=== PATIENT | female | born 1975 | race Caucasian/White ===

== ENCOUNTER 2024-04-22 16:22 | Outpatient (CLI) | payer BC, SELFPAY ==
[2024-04-25 05:30] LABS: HPV Source Cervical; HPV, High Risk by TMA Not Detected
== END 2024-04-22 16:23 | disposition home or self-care (01) ==
PROVIDERS: PCP Registered Nurse; Visit Provider Registered Nurse
DX: Z12.4 Encounter for screening for malignant neoplasm of cervix (principal)
CPT/HCPCS: 87624; 87625; 88141; 88142

== ENCOUNTER 2025-03-23 16:09 | Outpatient (CLI) | payer BC, SELFPAY ==
--- NOTE | 2025-03-23 16:20 | CRLHL7_ITS ---
For Patients: As a result of the Cures Act, medical imaging exams and procedure reports are released immediately into your electronic medical record. You may view this report before your referring provider. If you have questions, please contact your health care provider. INDICATION: BILATERAL SCREENING MAMMOGRAM, ASYMPTOMATIC 49 Y/O FEMALE COMPARISON: 03/20/2024, 11/29/2022, 11/02/2021 BY AQUILES GRULLON COMMENTARY: 03/25/2025 20:42:44 : NO COMPARISONS BY AQUILES GRULLON PRIORS 03/20/2024, 11/29/2022, 11/02/2021 BY AQUILES GRULLON COMMENTARY: 03/25/2025 20:42:44 : NO COMPARISONS BY AQUILES GRULLON PRIORS 03/20/2024, 11/29/2022, 11/02/2021 TECHNIQUE: Digital mammogram in CC and MLO projections including computer-aided detection (CAD) and tomosynthesis. BREAST COMPOSITION: There are scattered areas of fibroglandular density. FINDINGS: No suspicious findings. ASSESSMENT: BI-RADS 1 Negative RECOMMENDATION: Annual screening mammogram. A lay language report of this examination will be provided to the patient. Dictated by: Albaro Sanchez MD @ 03/26/2025 11:03:13 (Electronically Signed)
== END 2025-03-23 16:10 | disposition home or self-care (01) ==
LOC: MAMMO 16:09
PROVIDERS: PCP Internal Medicine; Visit Provider Internal Medicine
DX: Z12.31 Encounter for screening mammogram for malignant neoplasm of breast (principal)
CPT/HCPCS: 77063; 77067

== ENCOUNTER 2025-03-25 08:06 | Outpatient (CLI) | payer BC, SELFPAY ==
--- NOTE | 2025-03-25 09:18 | P.ANES_ITS ---
Anesthesia Charges Start Date/Time Anesthesia Start Date: 03/25/25 Anesthesia Start Time: 08:35 Stop Date/Time Anesthesia Stop Date: 03/25/25 Anesthesia Stop Time: 09:16 Coding CPT Codes CPT Codes: ANES LWR INTST NDSC NOS - [id number] ([id number]) P1 - NORMAL HEALTHY PATIENT, QZ - ENDLESS TRACK VEHICLE SUPERVISOR SVC W/O INSTALLATION TECHNICIAN BY
--- NOTE | 2025-03-25 09:18 | W.ANESCHARGE ---
Anesthesia Charges Start Date/Time Anesthesia Start Date: 03/25/25 Anesthesia Start Time: 08:35 Stop Date/Time Anesthesia Stop Date: 03/25/25 Anesthesia Stop Time: 09:16 Coding CPT Codes CPT Codes: ANES LWR INTST NDSC NOS - [id number] ([id number]) P1 - NORMAL HEALTHY PATIENT, QZ - MEASUREMENT COORDINATOR SVC W/O RATE INSERTER BY
--- NOTE | 2025-03-25 10:12 | P.ANES_ITS ---
Anesthesia Charges Start Date/Time Anesthesia Start Date: 03/25/25 Anesthesia Start Time: 08:35 Stop Date/Time Anesthesia Stop Date: 03/25/25 Anesthesia Stop Time: 09:16 Coding CPT Codes CPT Codes: SAMMY LWR INTST NDVA NOS - [id number] ([id number]) P1 - NORMAL HEALTHY PATIENT, QK - ROOF SERVICE TECHNICIAN 2-4 CNCRNT ANES PROC, QX - PARALEGALS SVC W/ MED DIRECTION
--- NOTE | 2025-03-25 10:12 | W.ANESCHARGE ---
Anesthesia Charges Start Date/Time Anesthesia Start Date: 03/25/25 Anesthesia Start Time: 08:35 Stop Date/Time Anesthesia Stop Date: 03/25/25 Anesthesia Stop Time: 09:16 Coding CPT Codes CPT Codes: SAMMY LWR INTST NDUT NOS - [id number] ([id number]) P1 - NORMAL HEALTHY PATIENT, QK - HOOK AND EYE MACHINE OPERATOR 2-4 CNCRNT ANES PROC, QX - SUPERVISING FLOORPERSON SVC W/ MED DIRECTION
== END 2025-03-25 08:07 | disposition home or self-care (01) ==
LOC: OP CLINIC 08:07
PROVIDERS: PCP Internal Medicine; Visit Provider Surgery
DX: Z12.11 Encounter for screening for malignant neoplasm of colon (principal); Z83.719 Family history of colon polyps, unspecified; D12.0 Benign neoplasm of cecum; D12.8 Benign neoplasm of rectum
CPT/HCPCS: 00811; 00812; 45385; 88305; J2704

== ENCOUNTER 2025-04-15 15:28 | Outpatient (CLI) | payer BC, SELFPAY | END 2025-04-15 15:29 | disposition home or self-care (01) | LOC: NFLDREF 15:28 | PROVIDERS: PCP Internal Medicine; Visit Provider Internal Medicine | DX: Z01.818 Encounter for other preprocedural examination (principal) | CPT/HCPCS: 80048 ==